=== PATIENT | female | born 1990 | race Caucasian/White ===

== ENCOUNTER 2021-10-24 10:19 | Emergency (ER) | payer BC, OTHER ==
[~2021-10-24] VITALS: Ht 175.3 cm; Wt 136.0 kg
[2021-10-24 10:39] VITALS: BP 155/102
--- NOTE | 2021-10-24 10:42 | PHYS DOC ---
General Adult EDM: Chief Complaint: WRIST PAIN HPI: HPI: Patient is a 30-year-old female who presents to the emergency department today for left wrist pain that occurred yesterday. Patient reports that she was batting in softball practice and she felt a pop. Patient is reporting pain to the dorsal aspect of her wrist on both sides. She rates her pain 8 out of 10. No treatment prior to arrival. She reports taking Tylenol last night as well as ice, compression and elevation. Patient reports limited extension due to pain. She denies any decreased sensation to her hand or wounds. Review of Systems: Review of Systems: Musculoskeletal: See HPI Integument: See HPI Neurologic: See HPI Physical Exam: PE: Constitutional: Well developed, well nourished, no acute distress, non-toxic appearance. [] HENT: Normocephalic, atraumatic, bilateral external ears normal, oropharynx moist, no oral exudates, nose normal. [] Eyes: PERRL, EOMI, conjunctiva normal, no discharge. [] Neck: Normal range of motion, no stridor Cardiovascular normal peripheral perfusion Lungs & Thorax: Normal work of breathing, no tachypnea Abdomen: Soft and obese Skin: Warm, dry, no erythema, no rash. [] Back: Motion Extremities: No tenderness, no cyanosis, no clubbing, ROM intact, no edema. [] Left wrist: Pain with palpation to aspect of patient's wrist, mild swelling noted, no crepitus, limited extension of wrist and limited ulnar rotation due to pain, neuro intact, no ecchymosis or wounds, no obvious deformity Neurologic: Alert and oriented X 3, normal motor function, normal sensory function, no focal deficits noted. [] Psychologic: Affect normal, judgement normal, mood normal. [] EKG: EKG: [] Radiology/Procedures: Radiology/Procedures: []PROCEDURE: WRIST 3V LEFT EXAMINATION: XR LT WRIST 3VIEWS. HISTORY: 30 years Female Reason: wrist injury playing softball / Spl. Instructions: / History: . COMPARISON: None. FINDINGS: No fracture, dislocation or radiopaque foreign body. The joint spaces and articular surfaces appear unremarkable. IMPRESSION: Unremarkable exam. Electronically signed by: Farzaneh Marvin MD (10/24/2021 11:06 AM) [id number] DICTATED AND SIGNED BY: FARZANEH MARVIN MD DATE: 10/24/21 1105 CC: FREDA PRIDE APRN; LENNY ELAM ~ Heart Score: C/O Chest Pain: N/A Risk Factors: Risk Factors: DM, Current or recent (<one month) smoker, HTN, HLP, family history of CAD, obesity. Risk Scores: Score 0 - 3: 2.5% MACE over next 6 weeks - Discharge Home Score 4 - 6: 20.3% MACE over next 6 weeks - Admit for Clinical Observation Score 7 - 10: 72.7% MACE over next 6 weeks - Early Invasive Strategies Course & Med Decision Making: Course & Med Decision Making Pertinent Labs and Imaging studies reviewed. (See chart for details) [] Patient presents to the emergency department for left wrist pain after injuring it while batting and softball practice yesterday. An x-ray was performed that showed no acute findings. Patient's wrist was placed in an Ramirez wrap. Patient educated on the rice protocol. Patient advised to take Tylenol and ibuprofen for pain. Patient is neurovascularly intact. I discussed with patient all findings and diagnostic testing as well as the need to follow-up with PCP for further evaluation and treatment or return to the ER if any new or worsening symptoms. Strict return precautions were also discussed at length. Patient voiced understanding and agreement with the plan. Patient is hemodynamically stable at the time of disposition. Dragon Disclaimer: Lesli Disclaimer: This electronic medical record was generated, in whole or in part, using a voice recognition dictation system. Departure Departure: Impression: Primary Impression: Wrist pain Qualified Codes: M25.532 - Pain in left wrist Disposition: HOME / SELF CARE / HOMELESS Condition: GOOD Referrals: LENNY ELAM (PCP) Patient Instructions: LISS - Routine Care for Injuries Additional Instructions: .You are seen in the emergency department today for wrist pain. An x-ray was performed that showed no acute findings. This will likely improve over time. Your symptoms may be improved by something called the rice protocol. This is rest, ice, compression, elevation. Please follow-up when doing intense exercises that may make the pain worse. Sometimes gentle stretching can provide relief, but be careful to injury. It is important to perform gentle range of motion exercises to prevent stiff joints and chronic pain. Use ice packs over the affected areas to help decrease your pain. For the first 24 hours you can apply ice 20 minutes on 20 minutes off for 4 times per day. Sometimes compression such as the use of an Ramirez wrap can help with the swelling. You may also elevate the affected area to help with the swelling. You take Tylenol and ibuprofen for pain. Follow-up with your primary care provider within a week if your pain persist. Return to the emergency department if you develop increased pain, decreased range of motion or decreased sensation in your extremity. FREDA PRIDE APRN Oct 24, 2021 10:42
--- NOTE | 2021-10-24 11:08 | RAD ---
EXAMINATION: XR LT WRIST 3VIEWS. HISTORY: 30 years Female Reason: wrist injury playing softball / Spl. Instructions: / History: . COMPARISON: None. FINDINGS: No fracture, dislocation or radiopaque foreign body. The joint spaces and articular surfaces appea r unremarkable. IMPRESSION: Unremarkable exam. Electronically signed by: Darnell Marvin MD (10/24/2021 11:06 AM) [id number]
== END 2021-10-24 11:35 | disposition home or self-care (01) ==
LOC: ER 10:19
DX: M25.532 Pain in left wrist (principal); R22.32 Localized swelling, mass and lump, left upper limb
CPT/HCPCS: 29125; 73110; 99283